=== PATIENT | male | born 1995 | race Caucasian/White ===

== ENCOUNTER 2023-09-12 05:31 | Emergency (ER) | payer OTHER ==
[2023-09-12 06:15] LABS: BASOPHILS % (AUTO) 0.3 %; EOSINOPHILS # (AUTO) 0.3 10^3/uL (0.0-0.7); HCT - HEMATOCRIT 45.9 % (42.0-52.0); HGB - HEMOGLOBIN 15.4 g/dL (14.0-18.0); LYMPHOCYTES # (AUTO) 2.2 10^3/uL (1.5-3.5); LYMPHOCYTES % (AUTO) 19.2 %; MEAN CORPUSCULAR HEMOGLOBIN 27.2 pg (27.0-31.0); MEAN CORPUSCULAR HGB CONC 33.6 g/dL (32.0-36.0); MEAN PLATELET VOLUME 8.9 fL (7.4-11.4); MONOCYTES # (AUTO) 0.9 10^3/uL (0.0-1.0); MONOCYTES % (AUTO) 8.1 %; NEUTROPHILS # (AUTO) 7.9 10^3/uL (1.5-6.6); PLT - PLATELET COUNT 315 10^3/uL (130-450); RED BLOOD COUNT 5.67 10^6/uL (4.70-6.10); RED CELL DISTRIBUTION WIDTH 13.2 % (12.0-15.0); WHITE BLOOD COUNT 11.4 x10^3/uL (4.8-10.8)
[2023-09-12 06:51] LABS: ALBUMIN 4.6 g/dL (3.2-5.5); ALBUMIN/GLOBULIN RATIO 1.4 (1.0-2.2); BILIRUBIN,TOTAL 0.9 mg/dL (0.2-1.0); CALCIUM 9.6 mg/dL (8.5-10.3); POTASSIUM 3.9 mmol/L (3.5-4.5); TOTAL PROTEIN 7.8 g/dL (6.4-8.9)
[2023-09-12 07:11] LABS: BILIRUBIN,URINE NEGATIVE (NEGATIVE); GLUCOSE, URINE (UA) NEGATIVE (NEGATIVE); KETONES,URINE (UA) NEGATIVE (NEGATIVE); LEUKOCYTE ESTERASE, URINE NEGATIVE (NEGATIVE); NITRITE,URINE NEGATIVE (NEGATIVE); OCCULT BLOOD,URINE NEGATIVE (NEGATIVE); PROTEIN,URINE NEGATIVE (NEGATIVE); UROBILINOGEN,URINE 0.2 (NORMAL) E.U./dL (NORMAL)
[2023-09-12 07:14] LABS: CLARITY,URINE CLEAR (CLEAR)
[2023-09-12] MEDS ORDERED: SODIUM CHLORIDE 0.9% 1,000 ML IV STA (07:55)
--- NOTE | 2023-09-12 07:57 | ED Physician Documentation ---
History of Present Illness - Stated complaint Stated Complaint: ABD PAIN, BLOODY DIARRHEA - Chief complaint Chief Complaint: Abd Pain - Additonal information Additional information: Patient is a 27-year-old male presenting to the emergency department with chief complaint abdominal pain and bloody stool. Reports a past medical history significant for diagnosis of ulcerative colitis in high school. Reports has not had any flares or similar episodes to this in several years. States has been having discomfort with defecation for 1 week although did not develop increasing pain or bloody stool until today. Denies any fever. Denies previous abdominal surgeries. Denies travel, drinking from unsecure water sources or other known sick contacts. Review of Systems Constitutional: denies: Fever Eyes: denies: Loss of vision Ears: denies: Loss of hearing Nose: denies: Rhinorrhea / runny nose Throat: denies: Dental pain / toothache Cardiac: denies: Chest pain / pressure Respiratory: denies: Dyspnea GI: reports: Abdominal Pain, Diarrhea, Bloody / black stool : denies: Dysuria PD PAST MEDICAL HISTORY - Past Medical History Past Medical History: Yes GI: Ulcerative colitis - Past Surgical History Past Surgical History: No - Present Medications Home Medications: Ambulatory Orders Medication Instructions Recorded Confirmed Mesalamine 1,000 mg RC DAILY PM #14 supp.rect 09/12/23 Ondansetron Odt [Zofran] 4 mg TL Q6H PRN #10 tablet 09/12/23 Oxycodone HCl/Acetaminophen 1 - 2 each PO Q6H PRN #14 tablet 09/12/23 [Percocet 5-325 mg Tablet] - Allergies Allergies/Adverse Reactions: Allergies Allergy/AdvReac Type Severity Reaction Status Date / Time nut - unspecified Allergy Anaphylaxis Verified 09/12/23 05:51 - Social History Does the pt smoke?: Yes Smoking Status: Current every day smoker Does the pt drink ETOH?: Yes Does the pt have substance abuse?: No - Immunizations Immunizations are current?: No PD ED PE NORMAL - Vitals Vital signs reviewed: Yes - General General: Alert and oriented X 3, No acute distress - HEENT HEENT: Atraumatic - Neck Neck: Supple, no meningeal sign - Cardiac Cardiac: RRR, No gallop - Respiratory Respiratory: No respiratory distress - Abdomen Abdomen: Other (Increased bowel sounds. Left lower quadrant tenderness. No peritonitis.) Results - Vitals Vitals: Vital Signs - 24 hr 09/12/23 09/12/23 09/12/23 05:39 06:30 10:49 Temperature 36.6 C 36.7 C Heart Rate 72 62 63 Respiratory 15 16 18 Rate Blood Pressure 126/108 H 121/69 134/72 H O2 Saturation 96 97 99 Oxygen O2 Source Room air - Labs Labs: Laboratory Tests 09/12/23 09/12/23 09/12/23 06:09 06:09 06:30 WBC 11.4 H RBC 5.67 Hgb 15.4 Hct 45.9 MCV 81.0 MCH 27.2 MCHC 33.6 RDW 13.2 Plt Count 315 MPV 8.9 Neut # (Auto) 7.9 H Lymph # (Auto) 2.2 [place] # (Auto) 0.9 Eos # (Auto) 0.3 Baso # (Auto) 0.0 Absolute Nucleated RBC 0.00 Nucleated RBC % 0.0 PT INR Sodium 137 Potassium 3.9 Chloride 105 Carbon Dioxide 24 Anion Gap 8.0 BUN 21 H Creatinine 1.0 Estimated GFR (MDRD) 91 Glucose 104 Lactic Acid Calcium 9.6 Total Bilirubin 0.9 AST 22 ALT 41 Alkaline Phosphatase 83 Total Protein 7.8 Albumin 4.6 Globulin 3.2 Albumin/Globulin Ratio 1.4 Lipase 11 Urine Color YELLOW Urine Clarity CLEAR Urine pH 6.0 Ur Specific [place] >=1.030 H Urine Protein NEGATIVE Urine Glucose (UA) NEGATIVE Urine Ketones NEGATIVE Urine Occult Blood NEGATIVE Urine Nitrite NEGATIVE Urine Bilirubin NEGATIVE Urine Urobilinogen 0.2 (NORMAL) Ur Leukocyte Esterase NEGATIVE Ur Microscopic Review NOT INDICATED Urine Culture Comments NOT INDICATED 09/12/23 09/12/23 08:21 08:21 WBC RBC Hgb Hct MCV MCH MCHC RDW Plt Count MPV Neut # (Auto) Lymph # (Auto) [place] # (Auto) Eos # (Auto) Baso # (Auto) Absolute Nucleated RBC Nucleated RBC % PT 12.9 H INR 1.2 Sodium Potassium Chloride Carbon Dioxide Anion Gap BUN Creatinine Estimated GFR (MDRD) Glucose Lactic Acid 0.6 Calcium Total Bilirubin AST ALT Alkaline Phosphatase Total Protein Albumin Globulin Albumin/Globulin Ratio Lipase Urine Color Urine Clarity Urine pH Ur Specific [place] Urine Protein Urine Glucose (UA) Urine Ketones Urine Occult Blood Urine Nitrite Urine Bilirubin Urine Urobilinogen Ur Leukocyte Esterase Ur Microscopic Review Urine Culture Comments PD Medical Decision Making - ED course Complexity details: reviewed results, re-evaluated patient, considered differential ED course: Patient 27-year-old male presenting to the emergency department with abdominal pain and bloody stool. Afebrile, hemodynamically stable. Some generalized abdominal tenderness but no guarding, rebound, rigidity on arrival. Patient endorsed for history of ulcerative colitis but reported that it been several years since his last flare. Lab work demonstrated minimal leukocytosis but no significant electrolyte abnormality. CT abdomen pelvis showed diffuse signs of colitis, with radiology interpretation inflammatory versus infectious. I have sent for stool studies. Patient offered medication for pain control which was declined. On reevaluation reported feeling somewhat better after IV hydration. Given his history I do believe it is likely that he is having a mild ulcerative colitis flare. We discussed methods for treating this including initiation of short course of mesalamine as well as medication for symptomatic management. Will initiate nighttime rectal suppository as well as provide medication for pain control. Will encourage careful follow-up with primary care and referral to gastroenterology as patient does not have a GI doctor at this time. Clear return precautions given. Departure - Departure Disposition: Home, Self Care Clinical Impression: Ulcerative colitis Qualifiers: Ulcerative colitis location: other ulcerative colitis Digestive disease complication type: without complication Qualified Code(s): K51.80 - Other ulcerative colitis without complications Prescriptions: Mesalamine 1,000 mg RC DAILY PM #14 supp.rect Oxycodone HCl/Acetaminophen [Percocet 5-325 mg Tablet] 1 - 2 each PO Q6H PRN #14 tablet PRN Reason: pain Ondansetron Odt [Zofran] 4 mg TL Q6H PRN #10 tablet PRN Reason: Nausea / Vomiting Comments: Thank you for allowing us to care for you today at [facility]. As we discussed your findings in the emergency department today are consistent with an ulcerative colitis flare. I have sent your stool sample for culture and further studies and if any of them are positive for invasive bacteria or other findings we will contact you directly. I have written prescription for medications including a rectal suppository Dorey to be taken once nightly for the next 2 weeks as well as medication for pain control and nausea. I recommend a simple diet with slow graduation from clear fluids to more complex foods over the course of the next few days. It is very important you follow-up with your primary care doctor to discuss your ED visit and possible referral to a gastrointestinal specialist. If it anytime you have new or worsening symptoms please not hesitate to return. Forms: PCP List
[2023-09-12 08:38] LABS: INR 1.2 (0.8-1.2); PT - PROTHROMBIN TIME 12.9 secs (9.9-12.6)
--- NOTE | 2023-09-12 10:42 | CT Report ---
PROCEDURE: CT abdomen pelvis with contrast INDICATIONS: LLQ abd pain. h/o UC CONTRAST: Omni 300 100ml TECHNIQUE: After the administration of intravenous contrast, 5 mm thick sections acquired from the diaphragms to the symphysis. 5 mm thick coronal and sagittal reformats were acquired. For radiation dose reducti on, the following was used: automated exposure control, adjustment of mA and/or kV according to nilam ent size. COMPARISON: None. FINDINGS: Image quality: Diagnostic Lower chest: Unremarkable lung bases. Normal heart size Liver: Unremarkable Gallbladder and biliary system: No indication of stricturing diseases. Gallbladder unremarkable. Pancreas: Unremarkable Spleen: Nonenlarged Adrenals: No adrenal nodules Kidneys: No solid mass or hydronephrosis. Vessels and lymph nodes: Main portal vein appears patent. No pathologic lymph nodes by size criteria. Bowel and peritoneum: No small bowel obstruction. There may be mild wall thickening of the distal col on and rectum. No abscess or pathologic ascites. Prominent lymph nodes are seen around the cecum. The appendix appears nondilated. Few colonic diverticula are present. Body wall: Unremarkable Pelvis: Bladder is unremarkable. Prostate is not well evaluated on this study. Bones: No acute or suspicious osseous finding. Sacroiliac joints are congruent. IMPRESSION: Mild mucosal hyperemia and wall thickening of the distal colon, rectum, suspicious for infection or i nflammation, for example in the setting of provided history of ulcerative colitis. Few colonic divert icula are seen without focal inflammation., Consider GI follow-up. Prominent right lower quadrant lymph nodes can also be seen with mesenteric adenitis. Appendix appear s nondilated. No small bowel obstruction, ascites, or abscess. Other findings as above. Reviewed by: Flip Black MD on 09/12/2023 10:41 AM PST Approved by: Flip Black MD on 09/12/2023 10:41 AM PST Station ID: [id number]
[2023-09-12] MEDS ORDERED: iohexoL-300 100 ML VIAL IVP ONE (10:52)
[2023-09-12 11:30] VITALS: BP 134/77; O2SAT 100
[2023-09-13 08:08] LABS: ADENOVIRUS F 40/41 Not Detected (Not Detected); ASTROVIRUS Not Detected (Not Detected); C DIFFICILE TOXIN A/B Not Detected (Not Detected); CAMPYLOBACTER Not Detected (Not Detected); CRYPTOSPORIDIUM Not Detected (Not Detected); CYCLOSPORA CAYETANENSIS Not Detected (Not Detected); ENTAMOEBA HISTOLYTICA Not Detected (Not Detected); ENTEROAGGREGATIVE E COLI Not Detected (Not Detected); ENTEROPATHOGENIC E COLI Not Detected (Not Detected); ENTEROTOXIGENIC E COLI Not Detected (Not Detected); GIARDIA LAMBLIA Not Detected (Not Detected); NOROVIRUS GI/GII Not Detected (Not Detected); PLESIOMONAS SHIGELLOIDES Not Detected (Not Detected); ROTAVIRUS A Not Detected (Not Detected); SALMONELLA Not Detected (Not Detected); SAPOVIRUS Not Detected (Not Detected); SHIGA-TOXIN-PRODUCING E COLI Not Detected (Not Detected); SHIGELLA/ENTEROINVASIVE E COLI Not Detected (Not Detected); VIBRIO Not Detected (Not Detected); VIBRIO CHOLERAE Not Detected (Not Detected); YERSINIA ENTEROCOLITICA Not Detected (Not Detected)
== END 2023-09-12 11:23 | disposition home or self-care (01) ==
LOC: ED 05:31
DX: K51.80 Other ulcerative colitis without complications (principal); F17.200 Nicotine dependence, unspecified, uncomplicated
CPT/HCPCS: 36415; 74177; 80053; 81003; 83605; 83690; 85025; 85610; 87507; 99283; 99284; Q9967; 81001; 87045; 87046; 87086; 87177; 87209; 87427; 87493